=== PATIENT | female | born 1955 | race Caucasian/White ===

== ENCOUNTER 2019-02-23 14:47 | Outpatient (CLI) | payer MEDICARE, SELFPAY ==
--- NOTE | 2019-02-23 15:00 | USCV_ITS ---
Sherlyn Corcoran Age: 63 Gender: F : 1955 Exam Date: 02/23/2019 15:06 Ordering Phys: Mayda Palmer Technologist: Sheron Sood Exam Location: [facility] [place] Indication: EDEMA BP: / HR: 66 Rhythm: Sinus Technical Quality: Adequate MEASUREMENTS (Male / Female) Normal Values 2D ECHO LV Diastolic Diameter PLAX 3.4 cm 4.2 - 5.9 / 3.9 - 5.3 cm LV Systolic Diameter PLAX 2.5 cm LV Chamber Size 3.9 cm IVS Diastolic Thickness 0.8 cm 0.6 - 1.0 / 0.6 - 0.9 cm IVS Systolic Thickness 1.2 cm LVPW Diastolic Thickness 0.9 cm 0.6 - 1.0 / 0.6 - 0.9 cm LVPW Systolic Thickness 1.2 cm RV Chamber Size 2.0 cm LVOT Diameter 2.0 cm LV Ejection Fraction 2D Teich 55.9 % LV Ejection Fraction MOD 2C 72.9 % LV Ejection Fraction 2C AL 76.8 % LA Diameter 3.8 cm LA Width 0.0 cm LA Height 4.3 cm RA Width 2.0 cm Aorta at Sinotubular Diameter 2.3 cm M-MODE LV Diastolic Diameter MM 3.8 cm 4.2 - 5.9 / 3.9 - 5.3 cm LV Systolic Diameter MM 2.1 cm LV Ejection Fraction MM Teich 77.9 % IVS Diastolic Thickness MM 1.2 cm 0.6 - 1.0 / 0.6 - 0.9 cm IVS Systolic Thickness MM 1.3 cm LVPW Diastolic Thickness MM 1.6 cm 0.6 - 1.0 / 0.6 - 0.9 cm LVPW Systolic Thickness MM 1.9 cm RV Diastolic Diameter MM 1.3 cm Aortic Annulus Diameter 2.4 cm LA Ao Ratio MM 1.6 MV E Point Septal Separation 0.4 cm DOPPLER AV Peak Velocity 124.0 cm/s LVOT Peak Velocity 103.0 cm/s AV Area Cont Eq vti 3.1 cm squared AV Area Cont Eq pk 2.7 cm squared MV Area PHT 3.1 cm squared Mitral E to A Ratio 0.8 MV E' Velocity 8.0 cm/s Mitral E to MV E' Ratio 9.2 Mitral E to LV E' Lateral Ratio 9.2 Mitral E to LV E' Septal Ratio 9.2 TR Peak Velocity 98.0 cm/s TR Peak Gradient 3.8 mmHg TR Mean Velocity 60.5 cm/s TR Mean Gradient 1.6 mmHg TR Velocity Time Integral 17.9 cm TV Peak E Velocity 70.0 cm/s Right Atrial Pressure 3.0 mmHg Pulmonary Artery Systolic Pressu 6.8 mmHg PV Peak Velocity 53.0 cm/s RV Acceleration Time 0.1 s RV Ejection Time 0.3 s RV AcT/ET 0.4 FINDINGS Left Ventricle Normal left ventricular size, systolic function and wall thickness, with no regional wall motion abnormalities. Left ventricular ejection fraction is estimated at 70 %. Normal diastolic function. Right Ventricle Normal right ventricular size and systolic function. Right ventricular systolic pressure 6.8 mmHg. Right Atrium Normal right atrial size. Left Atrium Normal left atrial size. Mitral Valve Structurally normal mitral valve. No mitral valve stenosis. Trace mitral valve regurgitation. Aortic Valve Structurally normal trileaflet aortic valve. No aortic valve stenosis. No aortic valve regurgitation. Tricuspid Valve Structurally normal tricuspid valve. No tricuspid valve stenosis. Trace tricuspid valve regurgitation. Pulmonic Valve Pulmonic valve not well visualized. No pulmonary valve stenosis. Trace pulmonary valve regurgitation. Pericardium No pericardial effusion. Aorta Normal-sized aortic root. CONCLUSIONS 1. Normal left ventricular size, systolic function and wall thickness, with no regional wall motion abnormalities. Left ventricular ejection fraction is estimated at 70 %. Normal diastolic function. 2. Normal right ventricular size and systolic function. 3. No significant valvular abnormality. 4. No prior similar studies to compare. Ida Hernandez MD (Electronically Signed) Final Date: 23 February 2019 18:43 S
== END 2019-02-23 14:48 | disposition home or self-care (01) ==
LOC: RAD 14:54
PROVIDERS: PCP Nurse Practitioner Family; Visit Provider Nurse Practitioner Family
DX: R60.0 Localized edema (principal)
CPT/HCPCS: 93306

== ENCOUNTER → 2019-03-18 16:26 | Outpatient (BNVA) | payer MEDICARE, SELFPAY | PROVIDERS: PCP Nurse Practitioner Family; Visit Provider Otolaryngology | DX: H65.03 Acute serous otitis media, bilateral (principal); H92.03 Otalgia, bilateral; J32.9 Chronic sinusitis, unspecified; J34.2 Deviated nasal septum; J34.3 Hypertrophy of nasal turbinates | CPT/HCPCS: 96372; 99214; J3301 ==

== ENCOUNTER 2019-03-30 09:09 | Outpatient (CLI) | payer MEDICARE, SELFPAY ==
--- NOTE | 2019-03-30 | XR_ITS ---
WS: [id number] PELVIS TECHNIQUE: 1 view(s) of the pelvis CLINICAL INFORMATION: ILIAC FOSSA PAIN COMPARISON: None. FINDINGS: Osteopenia. Moderate degenerative arthritis both hips. Vascular calcification. Pelvic phleboliths. No rmal pubic rami. No acute fractures. XR/XR pelvis min 3V [id number] IMPRESSION: Moderate degenerative arthritis both hips. No acute fractures.
== END 2019-03-30 09:10 | disposition home or self-care (01) ==
LOC: RADOUTREAD 11:22
PROVIDERS: PCP Nurse Practitioner Family; Visit Provider Family Medicine
DX: Z76.89 Persons encountering health services in other specified circumstances (principal)

== ENCOUNTER 2019-04-15 16:05 | Outpatient (RCR) | payer MEDICARE, MEDICAID, SELFPAY | END 2019-05-12 23:59 | disposition home or self-care (01) | LOC: SPT 16:05 | PROVIDERS: PCP Nurse Practitioner Family; Referring Provider Family Medicine; Visit Provider Family Medicine | DX: M25.552 Pain in left hip (principal) | CPT/HCPCS: 97110; 97161 ==

== ENCOUNTER → 2019-04-20 16:11 | Outpatient (BNVA) | payer MEDICARE, MEDICAID, SELFPAY | PROVIDERS: PCP Nurse Practitioner Family; Visit Provider Otolaryngology | DX: J32.4 Chronic pansinusitis (principal); J34.2 Deviated nasal septum; J34.3 Hypertrophy of nasal turbinates; H65.00 Acute serous otitis media, unspecified ear; H92.03 Otalgia, bilateral | CPT/HCPCS: 99214 ==

== ENCOUNTER 2019-05-20 08:24 | Outpatient (CLI) | payer MEDICARE, MEDICAID, SELFPAY ==
--- NOTE | 2019-05-20 08:36 | CT_ITS ---
WS: [id number] CT HEAD NONCONTRAST HISTORY: HEAD PAIN TECHNIQUE: Contiguous axial imaging performed through the brain in 2.5 mm imaging. Bone and soft tiss ue windows. All CT scans at [facility] use at least one of these dose optimization techniq ues: automated exposure control; mA and/or kV adjustment per patient size (includes targeted exams wh ere dose is matched to clinical indication); or iterative reconstruction. DLP: 925.91 mGycm COMPARISON: 01/31/2012 No acute intracranial hemorrhage, midline shift or mass effect. No atrophy or prior infarcts or herniation. Decreased attenuation in the region of the anterior RIGH T internal capsule extending into the external capsule. Probably due to chronic microvascular ischemi c disease. No prior infarct. Ventricles: Normal size with no hydrocephalus. Mild atherosclerotic plaque through the cavernous sinuses of the intracranial carotid arteries. Paranasal sinuses: Moderate mucoperiosteal thickening in the RIGHT frontal sinus into the frontal eth moid recess. Mastoid air cells: Well pneumatized. Calvarium and scalp: No abnormality. CT/CT head wo con* [id number] IMPRESSION: 1. No acute intracranial hemorrhage. 2. Mild microvascular ischemic type changes in the RIGHT anterior internal cap yamel. 3. RIGHT frontal and frontal ethmoid sinus disease. 4. Intracranial atherosclerosis. 5. If pain continues consider further evaluation by MRI if there is no contrai ndication.
== END 2019-05-20 08:25 | disposition home or self-care (01) ==
LOC: RADWPI 08:28
PROVIDERS: PCP Nurse Practitioner Family; Visit Provider Nurse Practitioner
DX: R51 Headache (principal); I67.2 Cerebral atherosclerosis
CPT/HCPCS: 70450

== ENCOUNTER 2019-08-17 09:38 | Outpatient (CLI) | payer MEDICARE, MEDICAID, SELFPAY ==
[2019-08-17 10:10] LABS: Basophils # 0.1 10^3/uL (0.0-0.1); Basophils % 0.8 %; Eosinophils # 0.2 10^3/uL (0.0-0.8); Eosinophils % 2.7 %; Hematocrit 40.7 % (37.0-47.0); Hemoglobin 12.9 g/dL (11.5-15.3); Lymphocytes # 1.4 10^3/uL (0.8-4.8); Lymphocytes % 22.1 %; Mean Corpuscular HGB Conc 31.7 g/dL (30.0-36.0); Mean Corpuscular Hemoglobin 30.6 pg (28.0-34.0); Mean Corpuscular Volume 96.7 fL (81-99); Mean Platelet Volume 9.3 fL (7.4-10.4); Monocytes # 0.4 10^3/uL (0.2-0.9); Monocytes % 6.8 %; Neutrophils # 4.2 10^3/uL (1.8-7.7); Neutrophils % 67.3 %; Nucleated Red Blood Cells % 0 %; Platelet Count 227 10^3/cmm (130-400); Red Blood Count 4.21 10^6/uL (4.1-5.3); Red Cell Distribution Width 12.5 % (12.1-15.1); White Blood Count 6.3 10^3/uL (4.0-10.0)
[2019-08-17 10:26] LABS: INR 0.94 (0.8-1.2)
[2019-08-17 10:30] LABS: Alanine Aminotransferase 19 U/L (0-33); Alkaline Phosphatase 79 IU/L (35-105); Anion Gap 14.4 (5-19); Aspartate Amino Transferase 20 U/L (0-32); Blood Urea Nitrogen 20 mg/dL (8-23); Calcium 10.2 mg/dL (8.5-10.5); Carbon Dioxide 28 mmol/L (22-29); Chloride 103 mmol/L (98-107); Globulin 3.1 g/dL (1.3-4.6); Glomerular Filtration Rate 72.2 mL/min (90-130); Glucose 110 mg/dL (65-115); Osmolality Calculated 289 mOsm/kg (285-295); Potassium 4.4 mmol/L (3.5-5.1); Sodium 141 mmol/L (136-145); Total Bilirubin 0.5 mg/dL (0.15-1.2); Total Protein 7.1 g/dL (6.6-8.7)
== END 2019-08-17 09:39 | disposition home or self-care (01) ==
LOC: LAB 09:42
PROVIDERS: PCP Nurse Practitioner; Visit Provider Internal Medicine Gastroenterology
DX: Q44.6 Cystic disease of liver (principal); R94.5 Abnormal results of liver function studies
CPT/HCPCS: 80053; 85025; 85610

== ENCOUNTER 2019-09-04 07:48 | Outpatient (CLI) | payer MEDICARE, MEDICAID, SELFPAY ==
--- NOTE | 2019-09-04 07:59 | US_ITS ---
WS: [id number] RIGHT UPPER QUADRANT ULTRASOUND HISTORY: POLYCYSTIC LIVER W/COMPRESSIVE SYMPTOMS/ABN LIVER FUNCTION COMPARISON: 05/07/2016 Liver: 17.8 cm in length. Moderately enlarged liver. Numerous cysts are present within the liver. Cys ts range in size from a few millimeters to 6 cm. The number of cysts has increased since 2017. Gallbladder: Normally distended gallbladder with no stones or wall thickening. CBD: 0.3 cm Pancreas: Not visualized. Right kidney: Prior RIGHT nephrectomy. Aorta and IVC: Unremarkable. No ascites. US/US gall bladder [id number] IMPRESSION: 1. Moderate enlargement of the liver with numerous hepatic cysts of various si zes. Polycystic liver disease has progressed since 2017. Similar to the prior M RI of 02/21/2017. 2. Prior RIGHT nephrectomy. 3. Negative gallbladder.
== END 2019-09-04 07:49 | disposition home or self-care (01) ==
LOC: RAD 07:49
PROVIDERS: PCP Nurse Practitioner; Visit Provider Internal Medicine Gastroenterology
DX: Q44.6 Cystic disease of liver (principal); R94.5 Abnormal results of liver function studies; R16.0 Hepatomegaly, not elsewhere classified; Z90.5 Acquired absence of kidney
CPT/HCPCS: 76705

== ENCOUNTER 2019-12-01 08:27 | Outpatient (CLI) | payer MEDICARE, MEDICAID, SELFPAY ==
--- NOTE | 2019-12-01 08:37 | ECG_ITS ---
[facility] Test Date: 2019-12-01 Pat Name: Sherlyn Corcoran Department: Room: Gender: Female [employer]: : 1955 Requested By: Layla Thapa Order Number: [id number] Theresa MD: Junito Mccullough M.D. Interpretive Statements NAME OF STUDY: LEXISCAN SESTAMIBI STRESS TEST INDICATION: PRE-OP CLEARANCE, PROCEDURE: At the baseline, the EKG revealed normal sinus rhythm with a poor R wave progression. Features of possible old anteroseptal myocardial infarction. The baseline blood pressure was 109/84 mm Hg with a heart rate of 79 beats/min. Lexiscan was infused over a period of 20 seconds. A total of 0.4 milligrams of Lexiscan was infused. The stress phase was continued for a total of 5 minutes. Heart rate at the end of the stress phase was 102 with a blood pressure 147/66. The EKG at the peak infusion revealed no significant changes. Sestamibi was injected 20 seconds after the Lexiscan infusion. Blood pressure at the end of the recovery phase was 158/63 with a heart rate of 97 per minute. CONCLUSION: 1. No significant EKG changes with the LexiScan infusion 2. No LexiScan induced chest pain or cardiac arrhythmia 3. Normal blood pressure and heart rate response 4. Sestamibi/sestamibi perfusion scan pending; see separate report. Electronically Signed On 12-03-2019 8:45:51 CDT by Junito Mccullough M.D. [id number]
--- NOTE | 2019-12-01 08:38 | NMCV_ITS ---
NM laureen perf SPECT r/s* [id number] Sherlyn Corcoran Age: 64 Gender: F : 1955 Exam Date: 12/01/2019 09:35 Ordering Phys: Layla Sampson Technologist: LIBBY Reid Exam Location: [facility] Indications: PRE TRANSPLANT EVAL FOR LIVER TRANSPLANT STRESS TEST Please see separate stress test report in [facility] for full findings IMAGE PROTOCOL Rest/Stress 1 Lexiscan Day Radiopharmaceutical Dose (mCi) Administration Site Administered by Rest: Tc-99m 10.9 IV LIBBY Reid Sestamibi Stress:Tc-99m 32.5 IV LIBBY Becerra Sestamibi Rest: 01-Dec-2019 60 Discovery 630 Stress: 01-Dec-2019 30 Discovery 630 0.4mg Lexiscan. Images obtained in supine and prone position. SPECT RESULTS Technical Quality: Good Raw Data Analysis: Normal Image Corrections: Patient motion artifact - motion correction applied to stress images. Summed Stress Score: 2 Summed Rest Score: 0 Summed Difference Score: 2 PERFUSION FINDINGS Small area of decreased tracer uptake in the mid inferolateral and apical lateral region with some reversibility with the supine imaging. However with the prone imaging, no significant reversibility was noted FUNCTIONAL RESULTS (calculated via Gated SPECT) Stress Image LV EF (%): 85 Stress EDV (mL):55 TID: 0.93 Stress ESV (mL):8 FUNCTIONAL FINDINGS: Segmental wall motion analysis revealed hypokinesia of the septum IMPRESSIONS 1. Myocardial perfusion imaging revealing a small area of reversible defect in the inferolateral and apical region, may suggest ischemia in the distribution of the left circumflex artery. However because of the inconsistency, the reliability is questionable. Clinical correlation is recommended 2. Normal LV ejection fraction of 85%. 3. LV wall motion analysis revealing no gross wall motion abnormalities. 4. Normal LV volume No similar previous studies are available for comparison Dr Junito Mccullough MD FAC (Electronically Signed) Final Date: 01 December 2019 20:21 S
[2019-12-01 08:54] VITALS: BMI 28.5
[2019-12-01] MEDS: regadenoson 0.4 Mg/5 ml Syringe IVP (10:22)
[2019-12-01 10:38] VITALS: BP 158/63; PULSE 99
== END 2019-12-01 08:28 | disposition home or self-care (01) ==
LOC: CDL 08:29
PROVIDERS: PCP Nurse Practitioner; Visit Provider Nurse Practitioner
DX: Z01.818 Encounter for other preprocedural examination (principal)
CPT/HCPCS: 78452; 93017; A9500; J2785

== ENCOUNTER 2019-12-04 07:59 | Outpatient (CLI) | payer MEDICARE, MEDICAID, SELFPAY ==
--- NOTE | 2019-12-04 08:08 | MM_ITS ---
WS: [id number] Bilateral screening digital mammogram, 12/04/2019 Clinical Data: SCREENING Comparison: 09/19/2018, 08/15/2017, 08/13/2016, 08/11/2015, 08/09/2014, 08/07/2013, 08/05/2012, 08/02/2011, 08/04, 11/09/2008. Findings: The breast parenchymal pattern shows fibroglandular tissue No spiculated masses or clustered calcific ations are seen. There are no secondary signs of carcinoma. There are scattered ductal calcifications . MM/[place] [id number] Impression: 1. Negative bilateral mammogram unchanged. 2. Recommend annual screening mammograms. BIRADS: 1-Negative FOLLOW UP: 1 Year Follow-up The CAD time checker was used.
== END 2019-12-04 08:00 | disposition home or self-care (01) ==
LOC: RADSHAW 08:05
PROVIDERS: PCP Nurse Practitioner; Visit Provider Nurse Practitioner
DX: Z12.31 Encounter for screening mammogram for malignant neoplasm of breast (principal)
CPT/HCPCS: 77067

== ENCOUNTER → 2020-02-29 08:51 | Outpatient (BNVA) | payer MEDICARE, MEDICAID, SELFPAY | PROVIDERS: PCP Nurse Practitioner; Visit Provider Internal Medicine Cardiovascular Disease | DX: I10 Essential (primary) hypertension (principal); I25.10 Atherosclerotic heart disease of native coronary artery without angina pectoris | CPT/HCPCS: 80048 ==

== ENCOUNTER 2020-04-14 13:15 | Outpatient (CLI) | payer MEDICARE, MEDICAID, SELFPAY ==
--- NOTE | 2020-04-14 13:18 | USCV_ITS ---
Sherlyn Corcoran Age: 64 Gender: F : 1955 Exam Date: 04/14/2020 13:43 Ordering Phys: mEir Martinez MD Technologist: Prince Andrade Exam Location: [facility] Indication: CAD BP: 159 / 53 HR: 72 Rhythm: Sinus Technical Quality: Fair MEASUREMENTS (Male / Female) Normal Values 2D ECHO LV Diastolic Diameter PLAX 4.2 cm 4.2 - 5.9 / 3.9 - 5.3 cm LV Systolic Diameter PLAX 2.1 cm IVS Diastolic Thickness 1.2 cm 0.6 - 1.0 / 0.6 - 0.9 cm IVS Systolic Thickness 1.8 cm LVPW Diastolic Thickness 1.3 cm 0.6 - 1.0 / 0.6 - 0.9 cm LVPW Systolic Thickness 1.8 cm LVOT Diameter 2.0 cm LV Ejection Fraction 2D Teich 78.3 % LV Ejection Fraction MOD 2C 77.0 % LV Ejection Fraction 2C AL 79.0 % LA Diameter 3.5 cm LA Width 3.3 cm LA Height 4.5 cm RA Width 3.0 cm RA Height 3.9 cm Aorta at Sinotubular Diameter 2.5 cm M-MODE LV Diastolic Diameter MM 4.7 cm 4.2 - 5.9 / 3.9 - 5.3 cm LV Systolic Diameter MM 2.5 cm LV Ejection Fraction MM Teich 79.5 % IVS Diastolic Thickness MM 1.1 cm 0.6 - 1.0 / 0.6 - 0.9 cm IVS Systolic Thickness MM 1.3 cm LVPW Diastolic Thickness MM 1.1 cm 0.6 - 1.0 / 0.6 - 0.9 cm LVPW Systolic Thickness MM 1.9 cm Aortic Annulus Diameter 3.1 cm LA Ao Ratio MM 1.1 MV E Point Septal Separation 0.3 cm DOPPLER AV Peak Velocity 99.0 cm/s LVOT Peak Velocity 101.0 cm/s AV Area Cont Eq vti 3.0 cm squared AV Area Cont Eq pk 3.2 cm squared MV Area PHT 3.3 cm squared Mitral E to A Ratio 0.8 MV E' Velocity 39.5 cm/s Mitral E to MV E' Ratio 8.3 Mitral E to LV E' Lateral Ratio 8.0 Mitral E to LV E' Septal Ratio 8.7 TR Peak Velocity 103.0 cm/s TR Peak Gradient 4.2 mmHg Right Atrial Pressure 3.0 mmHg Pulmonary Artery Systolic Pressu 7.2 mmHg PV Peak Velocity 55.0 cm/s RV Acceleration Time 0.1 s RV Ejection Time 0.3 s RV AcT/ET 0.4 FINDINGS Left Ventricle Normal left ventricular size. LV systolic function is normal with EF of 60-65%. No regional wall motion abnormalities. Grade 1 diastolic dysfunction is noted Right Ventricle The right ventricle is normal in size and function. Right Atrium The right atrium is normal in size. Left Atrium The left atrium is normal in size. Mitral Valve Structurally normal mitral valve without significant stenosis or prolapse. There is no mitral regurgitation. Aortic Valve Structurally normal aortic valve without significant sclerosis or stenosis. There is no aortic regurgitation. Tricuspid Valve Structurally normal tricuspid valve without significant stenosis or regurgitation. Insufficient TR jet to calculate RVSP Pulmonic Valve Structurally normal pulmonic valve without significant stenosis. There is no pulmonic regurgitation. Pericardium Normal pericardium without effusion. Aorta Normal ascending aorta dimension. CONCLUSIONS LV systolic function is normal with EF of 60-65% Grade 1 diastolic dysfunction is seen No significant valvular heart disease Compared to prior echocardiogram from 02/23/2019, no changes are noted Evan Riley MD (Electronically Signed) Final Date: 20 April 2020 10:06 S
== END 2020-04-14 13:16 | disposition home or self-care (01) ==
LOC: US 13:16
PROVIDERS: PCP Nurse Practitioner; Visit Provider Internal Medicine Cardiovascular Disease
DX: I25.10 Atherosclerotic heart disease of native coronary artery without angina pectoris (principal)
CPT/HCPCS: 93306

== ENCOUNTER → 2020-05-16 16:28 | Outpatient (BNVA) | payer MEDICARE, MEDICAID, SELFPAY | PROVIDERS: PCP Nurse Practitioner; Visit Provider Nurse Practitioner Family | DX: R60.9 Edema, unspecified (principal) | CPT/HCPCS: 80048 ==

== ENCOUNTER → 2020-05-23 08:45 | Outpatient (BNVA) | payer MEDICARE, MEDICAID, SELFPAY | PROVIDERS: PCP Nurse Practitioner; Visit Provider Internal Medicine Cardiovascular Disease | DX: R60.9 Edema, unspecified (principal) | CPT/HCPCS: 80048 ==

== ENCOUNTER → 2020-06-21 15:54 | Outpatient (BNVA) | payer MEDICARE, MEDICAID, SELFPAY | PROVIDERS: PCP Nurse Practitioner; Visit Provider Nurse Practitioner Family | DX: E78.5 Hyperlipidemia, unspecified (principal); I10 Essential (primary) hypertension; I25.10 Atherosclerotic heart disease of native coronary artery without angina pectoris; Q61.3 Polycystic kidney, unspecified | CPT/HCPCS: 80048 ==

== ENCOUNTER 2020-12-05 07:10 | Outpatient (CLI) | payer MEDICARE, MEDICAID, BC, SELFPAY ==
--- NOTE | 2020-12-05 07:18 | MM_ITS ---
WS: [id number] BILATERAL DIGITAL SCREENING MAMMOGRAPHY WITH CAD CLINICAL INFORMATION: SCREENING HISTORY: Screening mammogram. No current complaints. COMPARISON: December 04, 2019 TECHNIQUE: Bilateral CC and MLO views. FINDINGS: Scattered fibroglandular densities bilaterally. Vascular calcification. Stable punctate calcification s. No suspicious focal mass, asymmetry, calcifications, or architectural distortion. No evidence of m alignancy. MM/[id number] IMPRESSION: BI-RADS: 2-Benign FOLLOW UP: 1 Year Follow-up Recommend return to annual screening mammography.
== END 2020-12-05 07:11 | disposition home or self-care (01) ==
LOC: RADSHAW 07:16
PROVIDERS: PCP Nurse Practitioner; Visit Provider Nurse Practitioner
DX: Z12.31 Encounter for screening mammogram for malignant neoplasm of breast (principal)
CPT/HCPCS: 77067

== ENCOUNTER 2021-06-10 08:45 | Emergency (ER) | payer MEDICARE, BC, MEDICAID, SELFPAY ==
[2021-06-10 08:52] VITALS: BP 145/75; PULSE 85; RESP 16; O2SAT 95; BMI 27.4
--- NOTE | 2021-06-10 08:59 | W.ED.EPISTAX ---
HPI - Epistaxis General: Chief complaint: Epistaxis Stated complaint: Nose Bleed Time Seen by Provider: 06/10/21 08:55 History of Present Illness: Presents with a nosebleed that started at 0 800 this morning. Patient has packed her nose. Patient says she has had a problem with this previously. Patient currently under treatment for sinus infection which she says she has often. Denies any other problems. Said allergies been somewhat bothering her. Associated symptoms: Deny fever(s), headache(s) or vomiting Review of Systems Const: Denies: fever(s), chills or body aches Eyes: Denies: eye discomfort ENMT: Reports: epistaxis (This is her first nosebleed in a while. Is currently being treated sinus i); Denies: throat pain Card: Denies: chest pain Resp: Denies: dyspnea GI: Denies: abdominal pain, nausea or vomiting Skin/Breast: Denies: rash Neuro: Denies: headache(s) Psych: Denies: depression or suicidal ideation PFSH ED PFSH: Medical History Acute serous otitis media Atherosclerosis of aorta Atherosclerotic heart disease of [place] coronary artery without angina pectoris Benign essential HTN CAD (coronary artery disease) Chest pain Chronic sinusitis Deviated septum Dyslipidemia Edema Hepatic cyst Hyperlipidemia Hypertension Nasal turbinate hypertrophy Otalgia of both ears Polycystic kidney disease Polycystic kidney disease Polycystic liver disease Renal transplant disorder Surgical History H/O: hysterectomy History of nephrectomy Hx of CABG Family History Grandfather CAD (coronary artery disease) Family/Other CAD (coronary artery disease) Congestive heart failure Dementia Hypertension Family/Other Diabetes CAD (coronary artery disease) Father COPD (chronic obstructive pulmonary disease) Lung disease Sister Cancer Grandmother Cancer Congestive heart failure Son Chronic kidney disease (CKD) Other Hyperlipidemia Denies family history of Clotting disorder Suicide Anesthesia complication Bleeding disorder Stroke Social History Second hand smoke exposure: Yes Smoking risk assessment/counseling performed?: No Alcohol intake: never Desire information about alcohol rehabilitation?: No Counseling given: No Physical Exam Const: COMMON NORMALS: no acute distress, patient oriented x3 and alert HENMT: COMMON NORMALS: normocephalic and external ears normal HEAD & SCALP: normocephalic NOSE: Epistaxis present on the left EXTERNAL EAR: Yes external ears normal THROAT: posterior oropharynx normal Eye: COMMON NORMALS: EOMs intact bilaterally Neck/C-Spine: COMMON NORMALS: no JVD Resp: COMMON NORMALS: normal respiratory effort and No use of accessory muscles Cardio: COMMON NORMALS: no JVD GI: INSPECTION: Yes normal to inspection Extremity: COMMON NORMALS: normal to inspection and full ROM Neuro: COMMON NORMALS: patient oriented x3 SENSORIUM/ORIENTATION: Yes alert Psych: COMMON NORMALS: mental status grossly normal Skin: COMMON NORMALS: no rashes or lesions noted GENERAL SKIN EXAM: no rashes or lesions noted Course Vital Signs: Vital signs: Vital Signs Pulse Rate 85 06/10/21 08:52 Respiratory Rate 16 06/10/21 08:52 Blood Pressure 145/75 06/10/21 08:52 Pulse Oximetry 95 06/10/21 08:52 MDM - Epistaxis Medical Decision Making Nosebleed. Currently under treatment for sinus infection with Augmentin. Patient has not tried any Afrin. Does have some problems with allergies. Discharge Plan Discharge Condition: Stable Prescriptions: No Action nitroglycerin [Nitrostat] 0.4 mg tablet, sublingual 0.4 mg SUBLINGUAL Q5M PRN0RF losartan 100 mg tablet 100 mg PO DAILY 0RF aspirin 81 mg tablet,delayed release (DR/EC) 81 mg PO DAILY 0RF magnesium glycinate 100 mg tablet 200 mg PO BID 0RF pantoprazole 40 mg tablet,delayed release (DR/EC) 40 mg PO DAILY 0RF multivitamin Tablet 1 tab PO DAILY 0RF mycophenolate sodium [Myfortic] 180 mg tablet,delayed release (DR/EC) 180 mg PO BID 0RF valganciclovir [Valcyte] 450 mg tablet 225 mg PO DAILY 0RF Rx Instructions: 1/2 tab po daily tacrolimus [Prograf] 1 mg capsule 1 mg PO DAILY 0RF Label Comments: 1MG IN THE AM, 0.[address] KAUR isosorbide mononitrate 60 mg tablet extended release 24 hr 60 mg PO DAILY Qty: 90 3RF tacrolimus 0.5 mg capsule 0.5 mg PO 0RF Rx Instructions: 1mg qam and 0.5mg qpm bumetanide 0.5 mg tablet 0.5 mg PO DAILY 0RF amlodipine 10 mg tablet See Rx Instructions .ROUTE .COMPLEX Qty: 90 1RF Dose Instruction: TAKE 1 TABLET BY MOUTH EVERY DAY Rx Instructions: TAKE 1 TABLET BY MOUTH EVERY DAY spironolactone 25 mg tablet 25 mg PO DAILY Qty: 90 1RF metoprolol tartrate 50 mg tablet See Rx Instructions .ROUTE .COMPLEX Qty: 135 3RF Dose Instruction: TAKE 1&1/2 TABLETS BY MOUTH TWICE DAILY Rx Instructions: TAKE 1&1/2 TABLETS BY MOUTH TWICE DAILY Referrals: Layla Sampson FNP [Primary Care Provider] - Coding Level of Care Code ED [place] Service Technician for Mala Whaley
[2021-06-10] MEDS: oxymetazoline 0.05% Nasal Spray 15 mL 2 SPRAY NOSTRIL-B (09:07)
[2021-06-10 09:10] VITALS: BP 131/74; PULSE 69; RESP 18; TEMP 36.2; O2SAT 96
[2021-06-10 09:46] VITALS: BP 126/71; PULSE 60; RESP 18; TEMP 36.6; O2SAT 99
== END 2021-06-10 09:47 | disposition home or self-care (01) ==
PROVIDERS: Emergency Provider Nurse Practitioner Family; PCP Nurse Practitioner
DX: R04.0 Epistaxis (principal); J32.9 Chronic sinusitis, unspecified; Z79.82 Long term (current) use of aspirin
CPT/HCPCS: 99282

== ENCOUNTER 2021-09-08 00:39 | Emergency (ER) | payer MEDICARE, BC, MEDICAID, SELFPAY ==
[2021-09-08 01:01] VITALS: BP 126/75; PULSE 64; RESP 18; TEMP 36.6; O2SAT 98; BMI 28.5
--- NOTE | 2021-09-08 01:54 | W.ED.GENADLT ---
HPI - General Adult General: Chief complaint: General Medical Stated complaint: Took to Much Medicine Time Seen by Provider: 09/08/21 01:26 Source: patient Mode of arrival: ambulatory Limitations: no limitations History of Present Illness: 66-year-old female who states that she took her night meds tonight at 10 and then at midnight thought she had taken them all and accidentally took an extra dose of her doxazosin 1 mg and isosorbide 60 mg. She states she feels normal she has no complaints at this time 1 just to make sure she was okay denies any vomiting or diarrhea or lightheadedness. Associated symptoms: Deny chest pain, dyspnea, headache(s), nausea, rash or vomiting Review of Systems Const: Denies: fever(s), chills, body aches or change in appetite Eyes: Denies: blurry vision or eye discomfort ENMT: Denies: throat pain or dental pain Card: Denies: chest pain Resp: Denies: dyspnea GI: Denies: abdominal pain, nausea, vomiting or diarrhea : Denies: dysuria Musc: Denies: neck pain or back pain Skin/Breast: Denies: rash Neuro: Denies: headache(s) Psych: Denies: depression Toni/Lymph: Denies: easy bruising All/Imm: Denies: urticaria PFSH ED PFSH: Medical History Acute serous otitis media Atherosclerosis of aorta Atherosclerotic heart disease of [place] coronary artery without angina pectoris Benign essential HTN CAD (coronary artery disease) Chest pain Chronic sinusitis Deviated septum Dyslipidemia Edema Hepatic cyst Hyperlipidemia Hypertension Nasal turbinate hypertrophy Otalgia of both ears Polycystic kidney disease Polycystic kidney disease Polycystic liver disease Renal transplant disorder Surgical History H/O: hysterectomy History of nephrectomy Hx of CABG Family History Grandfather CAD (coronary artery disease) Family/Other CAD (coronary artery disease) Congestive heart failure Dementia Hypertension Family/Other Diabetes CAD (coronary artery disease) Father COPD (chronic obstructive pulmonary disease) Lung disease Sister Cancer Grandmother Cancer Congestive heart failure Son Chronic kidney disease (CKD) Other Hyperlipidemia Denies family history of Clotting disorder Suicide Anesthesia complication Bleeding disorder Stroke Social History Smoking and tobacco status: former smoker Second hand smoke exposure: Yes Smoking risk assessment/counseling performed?: No Alcohol intake: never Desire information about alcohol rehabilitation?: No Counseling given: No Physical Exam Const: COMMON NORMALS: no acute distress, patient oriented x3 and healthy appearing HENMT: COMMON NORMALS: normocephalic and atraumatic HEAD & SCALP: normocephalic and atraumatic Eye: COMMON NORMALS: Equal, round and reactive pupils present and EOMs intact bilaterally PUPIL: Yes Equal, round and reactive pupils present Neck/C-Spine: COMMON NORMALS: full ROM and supple Chest: COMMONS NORMALS: normal inspection of the chest and normal palpation of entire chest wall Resp: COMMON NORMALS: normal respiratory effort, No retractions, No use of accessory muscles and clear to auscultation bilaterally AUSCULTATION: clear to auscultation bilaterally Cardio: COMMON NORMALS: regular rate, regular rhythm and No murmurs present (Cardio) RATE: regular rate RHYTHM: regular rhythm GI: COMMON NORMALS: Normal to inspection, nondistended, normoactive bowel sounds present, Soft to palpation, non-tender and no masses PALPATION: Yes Soft to palpation Extremity: COMMON NORMALS: normal to inspection and full ROM Neuro: COMMON NORMALS: patient oriented x3, moves all extremities and no focal motor deficits Psych: COMMON NORMALS: mental status grossly normal, Normal thought process present and cooperative THOUGHT PROCESS: Normal thought process present Skin: COMMON NORMALS: no rashes or lesions noted and no wounds GENERAL SKIN EXAM: no rashes or lesions noted Course Vital Signs: Vital signs: Vital Signs Temperature 97.8 F 09/08/21 01:01 Pulse Rate 64 09/08/21 01:01 Respiratory Rate 18 09/08/21 01:01 Blood Pressure 126/75 09/08/21 01:01 Pulse Oximetry 98 09/08/21 01:01 Oxygen Delivery Me thod 09/08/21 01:01 [facility] - General Adult Medical Decision Making Patient presents after taking an extra doxazosin and isosorbide tonight. She is well-appearing her vitals are normal she only took 1 extra pill each she has no signs of overdose she is stable for discharge follow-up PCP and return if worsening. Discharge Plan Discharge Patient Disposition: Home Clinical Impression: Accidental overdose Condition: Stable Prescriptions: New ondansetron 4 mg tablet,disintegrating 2 mg PO Q6H PRN (Reason: nausea and vomiting) Qty: 14 0RF No Action nitroglycerin [Nitrostat] 0.4 mg tablet, sublingual 0.4 mg SUBLINGUAL Q5M PRN losartan 100 mg tablet 100 mg PO DAILY aspirin 81 mg tablet,delayed release (DR/EC) 81 mg PO DAILY magnesium glycinate 100 mg tablet 200 mg PO BID pantoprazole 40 mg tablet,delayed release (DR/EC) 40 mg PO DAILY multivitamin Tablet 1 tab PO DAILY mycophenolate sodium [Myfortic] 180 mg tablet,delayed release (DR/EC) 180 mg PO BID valganciclovir [Valcyte] 450 mg tablet 225 mg PO DAILY Rx Instructions: 1/2 tab po daily tacrolimus [Prograf] 1 mg capsule 1 mg PO DAILY Label Comments: 1MG IN THE AM, 0.[address] KAUR isosorbide mononitrate 60 mg tablet extended release 24 hr 60 mg PO DAILY Qty: 90 3RF metoprolol tartrate 50 mg tablet 100 mg PO BID doxazosin 1 mg tablet 2 mg PO BID tacrolimus 0.5 mg capsule 0.5 mg PO Rx Instructions: 1mg qam and 0.5mg qpm amlodipine 10 mg tablet See Rx Instructions .ROUTE .COMPLEX Qty: 90 1RF Dose Instruction: TAKE 1 TABLET BY MOUTH EVERY DAY Rx Instructions: TAKE 1 TABLET BY MOUTH EVERY DAY spironolactone 25 mg tablet 25 mg PO DAILY Qty: 90 2RF bumetanide 0.5 mg tablet 1 mg PO DAILY Discharge Orders: Discharge ED (Routine); Ordered 09/08/21 Ordered By: Allie Churchill Referrals: Mckayla Wade FNP [Primary Care Provider] - 1-3 days Discharge Diet: Advance as tolerated Discharge Activity: Resume usual activity Patient Instructions: Medication Safety for Older Adults (ED) Coding Level of Care Code ED Rag Shredder for Mala Whaley
[2021-09-08 02:32] VITALS: BP 121/64; PULSE 71; RESP 18; O2SAT 98
== END 2021-09-08 02:34 | disposition home or self-care (01) ==
PROVIDERS: Emergency Provider Emergency Medicine; PCP Nurse Practitioner Family
DX: T44.6X1A Poisoning by alpha-adrenoreceptor antagonists, accidental (unintentional), initial encounter (principal); T46.3X1A Poisoning by coronary vasodilators, accidental (unintentional), initial encounter; Z79.82 Long term (current) use of aspirin; I25.10 Atherosclerotic heart disease of native coronary artery without angina pectoris; I10 Essential (primary) hypertension; E78.5 Hyperlipidemia, unspecified; Z95.1 Presence of aortocoronary bypass graft; Z90.5 Acquired absence of kidney; Z87.891 Personal history of nicotine dependence
CPT/HCPCS: 99283

== ENCOUNTER → 2021-10-02 08:34 | Outpatient (BNVA) | payer MEDICARE, BC, MEDICAID, SELFPAY | PROVIDERS: PCP Nurse Practitioner Family; Visit Provider Otolaryngology | DX: J32.9 Chronic sinusitis, unspecified (principal); J32.4 Chronic pansinusitis; J34.2 Deviated nasal septum | CPT/HCPCS: 99203 ==

== ENCOUNTER 2021-10-16 15:43 | Emergency (ER) | payer MEDICARE, BC, MEDICAID, SELFPAY ==
[2021-10-16 15:50] VITALS: BP 124/71; PULSE 78; RESP 16; TEMP 36.7; O2SAT 97; BMI 27.1
--- NOTE | 2021-10-16 16:34 | ED_ITS ---
HPI - General Adult General: Chief complaint: Nausea/Vomiting/Diarrhea Stated complaint: N/V Time Seen by Provider: 10/16/21 16:31 History of Present Illness: Patient is a 66-year-old female with history of renal transplant on immunosuppressant, liver failure, prior CABG/CAD who presents the emergency room with concerns of decreased p.o. intake, nausea and retching after getting ex posed to ragweed earlier 3 days ago. Patient baseline reports that she has an allergy to ragweed. 3 days ago patient had accidental exposure to red week. Patient reports nasal congestion and nausea. Patient report multiple episodes of retching. Patient says that since exposure she has had decreased p.o. intake. Patient denies any hives or urticaria. No complaints. Patient fever/chill, chest pain, shortness of breath, abdominal pain, dysuria/hematuria/polyuria, diarrhea/melena/hematochezia. Onset: 3 days ago Duration:3 days Location:home Severity:mild/moderate Associated symptoms: Reports nausea and vomiting; Deny chest pain, dyspnea, rash or palpitations Review of Systems Const: Denies: fever(s) or chills Eyes: Denies: change in vision ENMT: Reports: other (+nasal congestion); Denies: mouth pain Card: Denies: chest pain or palpitations Resp: Denies: dyspnea or non-productive cough GI: Reports: nausea, vomiting and other (+decreased po intake); Denies: abdominal pain or diarrhea : Denies: dysuria Musc: Denies: extremity pain Skin/Breast: Denies: rash or new lesions Neuro: Denies: weakness in extremities Psych: Reports: other (Normal mood) Toni/Lymph: Denies: easy bruising PFSH ED PFSH: Medical History Acute serous otitis media Atherosclerosis of aorta Atherosclerotic heart disease of [place] coronary artery without angina pectoris Benign essential HTN CAD (coronary artery disease) Chest pain Chronic sinusitis Deviated septum Dyslipidemia Edema Hepatic cyst Hyperlipidemia Hypertension Nasal turbinate hypertrophy Otalgia of both ears Polycystic kidney disease Polycystic kidney disease Polycystic liver disease Renal transplant disorder Surgical History H/O: hysterectomy History of nephrectomy Hx of CABG Hx of cardiac catheterization Family History Grandfather CAD (coronary artery disease) Family/Other CAD (coronary artery disease) Congestive heart failure Dementia Hypertension Family/Other Diabetes CAD (coronary artery disease) Father COPD (chronic obstructive pulmonary disease) Lung disease Sister Cancer Grandmother Cancer Congestive heart failure Son Chronic kidney disease (CKD) Other Hyperlipidemia Denies family history of Clotting disorder Suicide Anesthesia complication Bleeding disorder Stroke Social History Smoking and tobacco status: never smoked Second hand smoke exposure: Yes Smoking risk assessment/counseling performed?: No Alcohol intake: never Desire information about alcohol rehabilitation?: No Counseling given: No Physical Exam Const: COMMON NORMALS: alert HENMT: COMMON NORMALS: atraumatic HEAD & SCALP: atraumatic MOUTH: moist mucous membranes not abnormal Eye: COMMON NORMALS: EOMs intact bilaterally and conjunctivae normal CONJUNCTIVA: Yes conjunctivae normal Neck/C-Spine: COMMON NORMALS: full ROM and supple Resp: COMMON NORMALS: normal respiratory effort and clear to auscultation bilaterally AUSCULTATION: clear to auscultation bilaterally Cardio: COMMON NORMALS: regular rate RATE: regular rate GI: COMMON NORMALS: Soft to palpation and non-tender PALPATION: Yes Soft to palpation OTHER: No focal TTP. NO guarding rebound, guarding, rigidity. No CVA tenderness to percussion. Neg [place]/Neg McBurney's point tenderness, no suprabupic tenderness to palpation. Extremity: COMMON NORMALS: full ROM Neuro: SENSORIUM/ORIENTATION: Yes alert MOTOR EXAM: No Abnormal motor strength present and Other motor observations present (no focal motor deficits) Psych: COMMON NORMALS: speech normal SPEECH: Yes normal speech MOOD & AFFECT: Yes euthymic mood Course Vital Signs: Vital signs: Vital Signs Temperature 98.1 F 10/16/21 15:50 Pulse Rate 63 10/16/21 18:49 Respiratory Rate 15 10/16/21 18:49 Blood Pressure 160/84 10/16/21 18:49 Pulse Oximetry 97 10/16/21 18:49 Oxygen Delivery Me thod 10/16/21 18:49 MDM - General Adult Medical Decision Making 66-year-old female with history of renal transplant, CABG presenting to the emergency room with concerns of decreased p.o. intake nausea and vomiting and nasal congestion after exposure to regular 3 3 days ago. On exam, patient hemodynamically stable. Lungs appears to be clear. Lab work-up showed creatinine 1.2 up from baseline 0.7. Since patient only has a single kidney, she received 1 L fluid. Patient is COVID-positive today. Pat ient is noted to be hypertensive to 160 systolic. At the present time, suspect patient's creatinine elevation is likely secondary to dehydration. However in the setting of COVID and immunocompromise, we will have patient be transferred to a tertiary center where there is renal transplant. Case was discussed with Dr. Lacey Thompson who agreed with the transfer to medicine team for management of acute kidney failure, renal transplant, COVID, and dehydration. Disposition: Transfer to outside hospital Lab Data : 10/16/21 17:25 10/16/21 17:40 Radiology Impressions Chest X-Ray 10/16/21 16:54 IMPRESSION: No acute infiltrate. Laboratory Results WBC 6.1 10^3/uL (4.0-10.0) 10/16/21 17:25 RBC 4.11 10^6/uL (4.1-5.3) 10/16/21 17:25 Hgb 12.3 g/dL (11.5-15.3) 10/16/21 17:25 Hct 39.4 % (37.0-47.0) 10/16/21 17:25 MCV 95.9 fl (81-99) 10/16/21 17:25 MCH 29.9 pg (28.0-34.0) 10/16/21 17:25 MCHC 31.2 g/dL (30.0-36.0) 10/16/21 17:25 RDW 13.6 % (12.1-15.1) 10/16/21 17:25 Plt Count 176 10^3/cmm (130-400) 10/16/21 17:25 MPV 9.8 fL (7.4-10.4) 10/16/21 17:25 Neut % (Auto) 67.7 % 10/16/21 17:25 Lymph % (Auto) 19.9 % 10/16/21 17:25 Esmeralda % (Auto) 9.8 % 10/16/21 17:25 Eos % (Auto) 1.6 % 10/16/21 17:25 Baso % (Auto) 0.7 % 10/16/21 17:25 Neut # (Auto) 4.14 10^3/uL (1.8-7.7) 10/16/21 17:25 Lymph # (Auto) 1.2 10^3/uL (0.8-4.8) 10/16/21 17:25 Esmeralda # (Auto) 0.6 10^3/uL (0.2-0.9) 10/16/21 17:25 Eos # (Auto) 0.1 10^3/uL (0.0-0.8) 10/16/21 17:25 Baso # (Auto) 0.0 10^3/uL (0.0-0.1) 10/16/21 17:25 Nucleated RBC % (auto) 0 % 10/16/21 17:25 Nucleated RBCs # 0.0 /100WBC 10/16/21 17:25 Sodium 140 mmol/L (136-145) 10/16/21 17:40 Potassium 4.4 mmol/L (3.5-5.1) 10/16/21 17:40 Chloride 102 mmol/L (98-107) 10/16/21 17:40 Carbon Dioxide 23 mmol/L (22-29) 10/16/21 17:40 Anion Gap 19.4 (5-19) H 10/16/21 17:40 BUN 30 mg/dL (8-23) H 10/16/21 17:40 Creatinine 1.2 mg/dL (0.5-0.9) H 10/16/21 17:40 GFR Calculation 44.9 mL/min (90-130) L 10/16/21 17:40 Glucose 103 mg/dL (65-115) 10/16/21 17:40 Calculated Osmolality 296 mOsm/kg (285-295) H 10/16/21 17:40 Calcium 9.9 mg/dL (8.5-10.5) 10/16/21 17:40 Total Bilirubin 0.3 mg/dL (0.15-1.2) 10/16/21 17:40 AST 19 U/L (0-32) 10/16/21 17:40 ALT 15 U/L (0-33) 10/16/21 17:40 Alkaline Phosphatase 89 U/L (35-105) 10/16/21 17:40 Troponin T Baseline 9 ng/L (0-10) 10/16/21 17:40 Troponin T 120 Minute 7.53 ng/L (0-10) 10/16/21 19:45 Total Protein 6.8 g/dL (6.6-8.7) 10/16/21 17:40 Albumin 3.8 g/dL (3.5-5.2) 10/16/21 17:40 Globulin 3.0 g/dL (1.3-4.6) 10/16/21 17:40 Lipase 59 U/L (13-60) 10/16/21 17:40 Urine Color Yellow (Yellow) 10/16/21 17:25 Urine Appearance Clear (CLEAR) 10/16/21 17:25 Urine pH 5 (5-7) 10/16/21 17:25 Ur Specific [place] 1.020 (1.005-1.030) 10/16/21 17:25 Urine Protein Neg (Negative) 10/16/21 17:25 Urine Glucose (UA) Norm (Normal) 10/16/21 17:25 Urine Ketones Negative (Negative) 10/16/21 17:25 Urine Blood Neg (Negative) 10/16/21 17:25 Urine Nitrate Negative (Negative) 10/16/21 17:25 Urine Bilirubin Neg (Negative) 10/16/21 17:25 Urine Urobilinogen Norm mg/dL (Negative) 10/16/21 17:25 Ur Leukocyte Esterase Negative (Negative) 10/16/21 17:25 Coronavirus 229E (PCR) Not detected (NOT DETECT) 10/16/21 17:25 SARS-CoV-2 (PCR) Detected (NOT DETECT) A 10/16/21 17:25 Imaging Data Other Imaging: Radiologist's impression: [facility] [address] [place] [address] XRay Report Signed Patient: Sherlyn Corcoran Unit #: [id number] : 1955 Age/Sex: 66 / F ADM Date: 10/16/21 Loc: ER Room/Bed: Attending Dr: Ordering Provider/Ordering MD: Berenice Suarez MD Date of Service: 10/16/21 Procedure(s): XR chest 1V portable [id number] Accession Number(s): [id number] Report Number: [id number] PROCEDURE INFORMATION: Exam: XR Chest Exam date and time: 10/16/2021 5:22 PM Age: 66 years old Clinical indication: Shortness of breath and other: Fatigue; Prior surgery; Surgery date: 6+ months; Surgery type: Loop TECHNIQUE: Imaging protocol: Radiologic exam of the chest. Views: 1 view. COMPARISON: CR XR ribs RT mn 3V w CXR1V [id number] 03/21/2021 12:02 PM FINDINGS: Lungs: No acute infiltrate is identified. Pleural spaces: Unremarkable. No pleural effusion. No pneumothorax. Heart/Mediastinum: Heart is within normal limits of size. Bones/joints: Sternotomy wires and mediastinal surgical clips are present, consistent with previous coronary arterial bypass grafting. There is scoliosis of the thoracic spine concave to the left. XR/XR chest 1V portable [id number] IMPRESSION: No acute infiltrate. ? 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, COVID Condition: Stable Prescriptions: New Pepcid 20 mg tablet 20 mg PO BID PRN (Reason: abdominal pain) 10 Days Qty: 20 0RF ondansetron 4 mg tablet,disintegrating 4 mg PO TID PRN (Reason: nausea and vomiting) 4 Days Qty: 12 0RF Maalox Advanced 1,000-60 mg tablet,chewable 1 tab PO TID PRN (Reason: abdominal pain) 7 Days Qty: 21 0RF No Action nitroglycerin [Nitrostat] 0.4 mg tablet, sublingual 0.4 mg SUBLINGUAL Q5M PRN (Reason: Chest Pain) aspirin 81 mg tablet,delayed release (DR/EC) 81 mg PO DAILY magnesium glycinate 100 mg tablet 200 mg PO BID pantoprazole 40 mg tablet,delayed release (DR/EC) 40 mg PO DAILY mycophenolate sodium [Myfortic] 180 mg tablet,delayed release (DR/EC) 180 mg PO BID valganciclovir [Valcyte] 450 mg tablet 225 mg PO DAILY tacrolimus [Prograf] 1 mg capsule 1 mg PO BID Label Comments: 1MG IN THE AM, 0.[address] KAUR metoprolol tartrate 50 mg tablet 100 mg PO BID doxazosin 1 mg tablet 2 mg PO BID spironolactone 25 mg tablet 25 mg PO DAILY Qty: 90 2RF bumetanide 0.5 mg tablet 1 mg PO BID hydralazine 25 mg tablet 25 mg PO TID Qty: 270 3RF ondansetron 4 mg tablet,disintegrating 2 mg PO Q6H PRN (Reason: nausea and vomiting) Qty: 14 0RF isosorbide mononitrate 60 mg tablet extended release 24 hr 60 mg PO BEDTIME Referrals: Mckayla Wade FNP [Primary Care Provider] - Discharge Diet: Advance as tolerated Discharge Activity: Increase activity as tolerated Activity Restrictions/Additional Instructions: Please come back if you have any worsening abdominal pain, fever or chills, nausea or vomiting, diarrhea, blood in the stool, inability hold down liquid or solids, or any new concerning complaints. Coding Level of Care Code ED Embedded Software Developer for Chg Fwd Exam Comprehensive
--- NOTE | 2021-10-16 16:54 | ECG_ITS ---
[facility] Test Date: 2021-10-16 Pat Name: Sherlyn Corcoran Department: Room: Gender: Female Email Specialist: : 1955 Requested By: Berenice Suarez Order Number: [id number] Theersa MD: Ida Hernandez M.D. Measurements Intervals [place] Rate: 67 P: -5 MN: 160 QRS: 16 QRSD: 82 T: 43 QT: 384 QTc: 407 Interpretive Statements SINUS RHYTHM ANTEROSEPTAL MYOCARDIAL INFARCTION , OF INDETERMINATE AGE [40+ ms Q WAVE IN V1-V4] Compared to ECG 07/15/2015 08:14:22 Myocardial infarct finding now present Electronically Signed On 10-16-2021 18:57:31 CDT by dIa Hernandez M.D. [id number]
--- NOTE | 2021-10-16 16:54 | XRR_ITS ---
PROCEDURE INFORMATION: Exam: XR Chest Exam date and time: 10/16/2021 5:22 PM Age: 66 years old Clinical indication: Shortness of breath and other: Fatigue; Prior surgery; Surgery date: 6+ months; Surgery type: Loop TECHNIQUE: Imaging protocol: Radiologic exam of the chest. Views: 1 view. COMPARISON: CR XR ribs RT mn 3V w CXR1V [id number] 03/21/2021 12:02 PM FINDINGS: Lungs: No acute infiltrate is identified. Pleural spaces: Unremarkable. No pleural effusion. No pneumothorax. Heart/Mediastinum: Heart is within normal limits of size. Bones/joints: Sternotomy wires and mediastinal surgical clips are present, consistent with previous coronary arterial bypass grafting. There is scoliosis of the thoracic spine concave to the left. XR/XR chest 1V portable [id number] IMPRESSION: No acute infiltrate.
[2021-10-16 17:28] LABS: Basophils % 0.7 %; Eosinophils # 0.1 10^3/uL (0.0-0.8); Eosinophils % 1.6 %; Hematocrit 39.4 % (37.0-47.0); Hemoglobin 12.3 g/dL (11.5-15.3); Lymphocytes # 1.2 10^3/uL (0.8-4.8); Lymphocytes % 19.9 %; Mean Corpuscular HGB Conc 31.2 g/dL (30.0-36.0); Mean Corpuscular Hemoglobin 29.9 pg (28.0-34.0); Mean Corpuscular Volume 95.9 fl (81-99); Mean Platelet Volume 9.8 fL (7.4-10.4); Monocytes # 0.6 10^3/uL (0.2-0.9); Monocytes % 9.8 %; Neutrophils # 4.14 10^3/uL (1.8-7.7); Neutrophils % 67.7 %; Nucleated Red Blood Cells % 0 %; Platelet Count 176 10^3/cmm (130-400); Red Blood Count 4.11 10^6/uL (4.1-5.3); Red Cell Distribution Width 13.6 % (12.1-15.1); White Blood Count 6.1 10^3/uL (4.0-10.0)
[2021-10-16 17:29] LABS: Add Urine Microscopic? NO; Charge for UA Resulting for Rev
[2021-10-16 17:31] LABS: Bilirubin Urine Neg (Negative); Blood Urine Neg (Negative); Glucose Urine UA Norm (Normal); Ketones Urine Negative (Negative); Leukocyte Esterase Urine Negative (Negative); Nitrate Urine Negative (Negative); Protein Urine Neg (Negative); Urine Appearance Clear (CLEAR); Urine Color Yellow (Yellow); Urobilinogen Urine Norm (Negative); pH Urine 5 (5-7)
[2021-10-16] MEDS: ondansetron 2 mg/ML SDV 2 mL 4 MG IVP (18:00)
[2021-10-16] MEDS: lidocaine 2% viscous 15 ML, aluminum-mag hydrox-simethicon 30 ML, sucralfate oral liq 1 GM PO (18:00)
[2021-10-16] MEDS: sodium chloride 0.9% 500 ML IV (18:01)
[2021-10-16 18:07] LABS: Alanine Aminotransferase 15 U/L (0-33); Albumin Level 3.8 g/dL (3.5-5.2); Alkaline Phosphatase 89 U/L (35-105); Anion Gap 19.4 (5-19); Aspartate Amino Transferase 19 U/L (0-32); Blood Urea Nitrogen 30 mg/dL (8-23); Calcium 9.9 mg/dL (8.5-10.5); Carbon Dioxide 23 mmol/L (22-29); Chloride 102 mmol/L (98-107); Glomerular Filtration Rate 44.9 mL/min (90-130); Glucose 103 mg/dL (65-115); Lipase 59 U/L (13-60); Osmolality Calculated 296 mOsm/kg (285-295); Potassium 4.4 mmol/L (3.5-5.1); Sodium 140 mmol/L (136-145); Total Bilirubin 0.3 mg/dL (0.15-1.2); Total Protein 6.8 g/dL (6.6-8.7)
[2021-10-16 18:08] LABS: Troponin(5th) Baseline 9 ng/L (0-10)
[2021-10-16] MEDS: sodium chloride 0.9% 1,000 ML 999 ML IV (18:48)
[2021-10-16 18:49] VITALS: BP 160/84; PULSE 63; RESP 15; O2SAT 97
--- NOTE | 2021-10-16 18:54 | ECG_ITS ---
[facility] Test Date: 2021-10-16 Pat Name: Sherlyn Corcoran Department: Room: Gender: Female Bailer Operators Supervisor: : 1955 Requested By: Berenice Suarez Order Number: [id number] Theresa MD: Ida Hernandez M.D. Measurements Intervals [place] Rate: 64 P: 15 GA: 174 QRS: 37 QRSD: 78 T: 41 QT: 383 QTc: 398 Interpretive Statements SINUS RHYTHM ANTEROSEPTAL MYOCARDIAL INFARCTION , PROBABLY RECENT Compared to ECG 10/16/2021 17:06:06 No significant changes Electronically Signed On 10-16-2021 19:02:35 CDT by Ida Hernandez M.D. [id number]
[2021-10-16 19:11] LABS: Adenovirus Not Detected (NOT DETECT); Chlamydia Pneumoniae Not Detected (NOT DETECT); Coronavirus 229E,HKU1,NL63,OC4 Not Detected (NOT DETECT); Human Metapneumovirus Not Detected (NOT DETECT); Human Rhinovirus/Enterovirus Not Detected (NOT DETECT); Influenza A Not Detected (NOT DETECT); Influenza A H1 Not Detected (NOT DETECT); Influenza A H1-2009 Not Detected (NOT DETECT); Influenza A H3 Not Detected (NOT DETECT); Influenza B Not Detected (NOT DETECT); Mycoplasma Pneumoniae Not Detected (NOT DETECT); Parainfluenza Virus Type 1 Not Detected (NOT DETECT); Parainfluenza Virus Type 2 Not Detected (NOT DETECT); Parainfluenza Virus Type 3 Not Detected (NOT DETECT); Parainfluenza Virus Type 4 Not Detected (NOT DETECT); Respiratory Syncytial Virus A Not Detected (NOT DETECT); Respiratory Syncytial Virus B Not Detected (NOT DETECT); SARS-COV-2 Detected (NOT DETECT)
[2021-10-16 20:26] LABS: Troponin 5 2HR 7.53 ng/L (0-10)
[2021-10-16 20:37] LABS: Troponin 5 2HR Delta -1.47 ABS# (0-10)
[2021-10-16 21:46] VITALS: BP 160/84; PULSE 63; RESP 15; TEMP 36.7; O2SAT 97
== END 2021-10-16 21:50 ==
PROVIDERS: Emergency Provider Emergency Medicine; PCP Nurse Practitioner Family
DX: R11.0 Nausea (principal); R63.0 Anorexia; E86.0 Dehydration; U07.1 COVID-19; T86.11 Kidney transplant rejection; Z79.82 Long term (current) use of aspirin; Z77.22 Contact with and (suspected) exposure to environmental tobacco smoke (acute) (chronic); Z95.1 Presence of aortocoronary bypass graft; I25.10 Atherosclerotic heart disease of native coronary artery without angina pectoris; E78.5 Hyperlipidemia, unspecified; I10 Essential (primary) hypertension
CPT/HCPCS: 36415; 71045; 80053; 81003; 83690; 84484; 85025; 87635; 93005; 96361; 96374; 99285; J2405; J7030; J7040

== ENCOUNTER 2021-11-06 06:28 | Outpatient (CLI) | payer MEDICARE, BC, MEDICAID, SELFPAY ==
--- NOTE | 2021-11-06 06:30 | CT_ITS ---
WS: [id number] CT PARANASAL SINUSES HISTORY: chronic sinusitis TECHNIQUE: Contiguous 2.5 mm axial images obtained through the sinuses. Images are reconstructed in s agittal and coronal planes. All CT scans at [facility] use at least one of these dose optimiz ation techniques: automated exposure control; mA and/or kV adjustment per patient size (includes targ eted exams where dose is matched to clinical indication); or iterative reconstruction. DLP: 306.25 mGy.cm COMPARISON: 01/23/2019 Frontal sinuses: Significant improvement in the previously seen mucoperiosteal thickening throughout the frontal sinuses extending into the frontal ethmoid recesses. There is still a small amount of muc operiosteal thickening extending into the frontal ethmoid recesses but no complete obstruction. No ai r-fluid level. Sphenoid sinus: Minimal mucoperiosteal thickening with moderate improvement since the prior study. Ethmoid sinuses: Significant improvement in the mucoperiosteal thickening since the prior study. No s ignificant residual disease. Maxillary sinus: No air-fluid levels. Lobular thickening along the floor of the RIGHT maxillary sinus . Mucoperiosteal thickening measures up to 10 mm. No improvement. Mild mucoperiosteal thickening LEFT maxillary sinus with moderate improvement. Ostiomeatal unit: Ostiomeatal units are patent which represents an improvement since the prior examin ation. Moderate deviation of the nasal septum to the LEFT with a 3 mm bony spur to the LEFT. Spur abuts the middle turbinate on the LEFT. CT/CT sinus wo con* [id number] IMPRESSION: 1. Moderate changes of mucoperiosteal thickening throughout the sinuses as praneeth cribed above. Overall there has been a moderate improvement of the sinusitis co mpared to 01/23/2019. No air-fluid levels. 2. Only minimal progression of disease in the RIGHT maxillary sinus. 3. Ostiomeatal units are now patent. 4. LEFT nasal septum deviation with a 3 mm bony spur contacting the LEFT middl e turbinate. 5. No air-fluid levels.
== END 2021-11-06 06:29 | disposition home or self-care (01) ==
LOC: RAD 06:28
PROVIDERS: PCP Nurse Practitioner Family; Visit Provider Otolaryngology
DX: J32.9 Chronic sinusitis, unspecified (principal); J34.2 Deviated nasal septum
CPT/HCPCS: 70486

== ENCOUNTER → 2021-11-20 09:26 | Outpatient (BNVA) | payer MEDICARE, BC, MEDICAID, SELFPAY | PROVIDERS: PCP Nurse Practitioner Family; Visit Provider Otolaryngology | DX: J32.4 Chronic pansinusitis (principal); J34.2 Deviated nasal septum; J34.3 Hypertrophy of nasal turbinates | CPT/HCPCS: 99213 ==

== ENCOUNTER 2021-12-11 08:32 | Outpatient (CLI) | payer MEDICARE, BC, MEDICAID, SELFPAY ==
--- NOTE | 2021-12-11 08:36 | MM_ITS ---
WS: [id number] BILATERAL SCREENING DIGITAL TOMOSYNTHESIS MAMMOGRAM WITH CAD HISTORY: SCREENING COMPARISON: 12/05/2020 and 12/04/2019 Bilateral CC and MLO views with tomosynthesis and synthetic mammography submitted. Computer aided det ection analyzed. Breast composition: There are scattered areas of fibroglandular density. No suspicious masses, microc alcifications or architectural distortion. Benign round and vascular calcifications in each breast. MM/[place] [id number] IMPRESSION: BI-RADS: 2-Benign FOLLOW UP: 1 Year Follow-up
== END 2021-12-11 08:33 | disposition home or self-care (01) ==
LOC: RAD 08:33
PROVIDERS: PCP Nurse Practitioner Family; Visit Provider Nurse Practitioner Family
DX: Z12.31 Encounter for screening mammogram for malignant neoplasm of breast (principal)
CPT/HCPCS: 77063; 77067

== ENCOUNTER 2021-12-25 08:29 | Outpatient (CLI) | payer MEDICARE, BC, MEDICAID, SELFPAY ==
--- NOTE | 2021-12-25 08:40 | MR_ITS ---
WS: [id number] MRI ABDOMEN with and without CONTRAST. COMPARISON: 03/14/[address] 06/14/2015 Multiplanar, multisequence imaging is performed with and without contrast. MultiHance 15 mL IV. Marked enlargement of the liver. Very little normal liver parenchyma. There are innumerable cysts thr oughout both lobes of the liver. Liver extends over a length of 30 cm and extends from medial to late ral. Majority of the cysts within the liver are simple cysts. There are additional cysts which are of increased signal on the noncontrast T1 sequences with layering debris. The largest cyst is in the mi dline with increased proteinaceous material measuring 8.1 x 9.3 cm. This cyst has increased in size. Overall increase in size and number of the cystic disease since 2018. Transplanted kidney noted in the LEFT renal pelvis. Visualized pancreas is normal. No ascites or pleu ral effusion. No acute hemorrhage. Neither [place] kidney is identified. MR/MR abdomen wo/w con* [id number] IMPRESSION: 1. Polycystic liver disease has progressed since 2018. Increase in size and nu mber of the cyst. Majority of these are simple cysts but there are few cysts wi th increased proteinaceous debris and fluid fluid levels probably due to hemorr joann. No enhancing mass identified. 2. No ascites. 3. Severe enlargement of the liver. 4. Transplanted kidney LEFT iliac fossa.
[2021-12-25] MEDS: gadobenate dimeglumine 20 mL vial IV (09:57)
== END 2021-12-25 08:30 | disposition home or self-care (01) ==
PROVIDERS: PCP Nurse Practitioner Family; Visit Provider Internal Medicine Gastroenterology
DX: Q44.6 Cystic disease of liver (principal); R16.0 Hepatomegaly, not elsewhere classified; Z94.0 Kidney transplant status
CPT/HCPCS: 74183; A9577